=== PATIENT | female | born 1965 | race Caucasian/White ===

== ENCOUNTER 2016-05-31 14:54 | Inpatient (IN) | payer OTHER ==
[~2016-05-31] VITALS: Ht 172.7 cm; Wt 119.8 kg
[~2016-05-31 14:54] MED LIST: ACETAMINOPHEN500 M3 PO; AMARYL2 MG PO; BENADRYL25 M2 PO; CARAFATE1 G1 PO; CEFADROXIL500 M1 PO; CORGARD20 MG PO; DICLOFENAC50 MG PO; FLEXERIL5 MG PO; HCTZ PO; LEVEMIR100 U/ML; METFORMIN HCL1000 MG PO; Metformin Hydr500 MG PO; NORCO 10-325 T1 EACH PO; OMEPRAZOLE20 MG PO; OXYCODONE5 MG PO; PROPRANOLOL HCL10 MG PO; TYLENOL WITH CO1 TA1 PO; [UNRECOGNIZED DRUG - OTHER] PO; [UNRECOGNIZED DRUG - OTHER] T
[2016-05-31 15:23] VITALS: BP 118/62
[2016-05-31 16:04] LABS: BASO # 0.1 10*3/uL (0.0-0.1); BASO % 1.4 % (0.0-1.0); EOS # 0.1 10*3/uL (0.0-0.4); EOS % 3.3 % (1.0-4.0); HEMOGLOBIN 10.1 g/dl (12.0-16.0); LYMPH # 0.9 10*3/uL (1.3-4.4); LYMPH % 23.3 % (27.0-41.0); MEAN CELL VOLUME 76.6 fl (81.0-99.0); MEAN CORPUSCULAR HGB 22.1 pg (27.0-31.0); MEAN CORPUSCULAR HGB CONC 28.9 g/dl (33.0-37.0); MONO # 0.5 10*3/uL (0.1-1.0); NEUT # 2.2 10*3/uL (2.3-7.9); NEUT % 58.2 % (47.0-73.0); PLATELET COUNT AUTOMATED 85 10*3/uL (130-400); RED BLOOD COUNT 4.57 10*6/uL (4.10-5.10); RED CELL DISTRI WIDTH 17.9 % (0-14.5); WHITE BLOOD COUNT 3.7 10*3/uL (4.8-10.8)
[2016-05-31 16:22] LABS: ALBUMIN 2.6 gm/dl (3.1-4.5); ALKALINE PHOSPHATASE 156 U/L (45-117); BUN 8 mg/dl (7-24); CARBON DIOXIDE 26 mmol/L (21-32); CHLORIDE 107 mmol/L (98-107); EST GLOM FILT AFRICAN AMERICAN > 60 ml/min; GLUCOSE 176 mg/dL (65-99); POTASSIUM 4.6 mmol/L (3.5-5.1); SGOT/AST 43 IU/L (3-35); SGPT/ALT 32 U/L (12-78); SODIUM 142 mmol/L (136-145); TOTAL PROTEIN 6.9 gm/dL (6.4-8.2)
[2016-05-31] MEDS ORDERED: MIRTAZAPINE15 M2 PO (17:52)
[2016-05-31 18:24] VITALS: BP 120/68
[2016-05-31 18:35] VITALS: BP 146/92
[2016-05-31] MEDS ORDERED: LEVEMIR10 ML SC (18:55)
[2016-05-31 20:00] VITALS: BP 113/65
[2016-06-01] VITALS: BP 119/75
[2016-06-01 06:04] LABS: ALBUMIN 2.3 gm/dl (3.1-4.5); BUN 9 mg/dl (7-24); CARBON DIOXIDE 24 mmol/L (21-32); CHLORIDE 107 mmol/L (98-107); CHOLESTEROL 112 mg/dL (<200); EST GLOM FILT AFRICAN AMERICAN > 60 ml/min; GLUCOSE 142 mg/dL (65-99); MAGNESIUM 1.8 mg/dL (1.5-2.1); SGOT/AST 32 IU/L (3-35); SGPT/ALT 25 U/L (12-78); SODIUM 142 mmol/L (136-145); TRIGLYCERIDES 98 mg/dl (<150); VLDL CHOLESTEROL 20 mg/dL (6-40)
[2016-06-01 06:10] LABS: HEMATOCRIT 29.2 % (37.0-47.0); HEMOGLOBIN 8.5 g/dl (12.0-16.0); MEAN CELL VOLUME 75.5 fl (81.0-99.0); MEAN CORPUSCULAR HGB CONC 29.1 g/dl (33.0-37.0); PLATELET COUNT AUTOMATED 61 10*3/uL (130-400); RED BLOOD COUNT 3.87 10*6/uL (4.10-5.10); RED CELL DISTRI WIDTH 17.7 % (0-14.5); WHITE BLOOD COUNT 2.6 10*3/uL (4.8-10.8)
[2016-06-01 06:12] LABS: ALKALINE PHOSPHATASE 129 U/L (45-117); BILIRUBIN, TOTAL 0.9 mg/dl (0.2-1.0); HDL CHOLESTEROL 28 mg/dl (40-60); LDL CHOLESTEROL 64 mg/dL (9-159); PHOSPHOROUS 3.3 mg/dL (2.5-4.9); TOTAL PROTEIN 5.7 gm/dL (6.4-8.2)
[2016-06-01 06:45] LABS: HEMOGLOBIN A1c 6.8 % (4.8-5.6)
[2016-06-01 07:07] LABS: INTERNATIONAL NORM RATIO 1.2 (2.0-3.5); PROTHROMBIN TIME 13.4 SECONDS (9.0-12.4)
[2016-06-01 07:11] LABS: FOLIC ACID 7.88 ng/mL (>5.38)
[2016-06-01 07:32] LABS: EOSINOPHIL # 0.1 10*3/uL (0-0.4); EOSINOPHILS 5 % (1-4); HYPOCHROMIA MODERATE; LYMPHOCYTE # 0.6 10*3/uL (1.3-4.4); MICROCYTOSIS SLIGHT; MONOCYTE # 0.4 10*3/uL (0.1-1.0); NEUTROPHIL # 1.5 10*3/uL (2.3-7.9); NEUTROPHILS 58 % (47-73); OVALOCYTES FEW; PLATELET SUFFICIENCY LOW (NORMAL); TOTAL CELLS COUNTED 100 #CELLS
[2016-06-01 08:00] VITALS: BP 131/68
[2016-06-01 12:00] VITALS: BP 124/72
[2016-06-01 15:55] VITALS: BP 124/70
[2016-06-01 15:55] LABS: BODY FLUID LDH 49 IU/L
[2016-06-01 16:24] LABS: BODY FLUID TYPE PERITONEAL
[2016-06-01 16:32] LABS: BODY FLUID RBC < 1000 /uL; BODY FLUID WBC 210 /uL
[2016-06-01 16:43] LABS: BF LYMPHOCYTES 4 %; BF NEUTROPHILS 4 %
[2016-06-01 16:44] LABS: BF MACROPHAGES 87 %; BF MESOTHELIALS 2 %
[2016-06-01 20:00] VITALS: BP 112/59
[2016-06-02] VITALS: BP 116/47
[2016-06-02 06:07] LABS: HEMATOCRIT 31.2 % (37.0-47.0); HEMOGLOBIN 9.1 g/dl (12.0-16.0); MEAN CELL VOLUME 75.5 fl (81.0-99.0); MEAN CORPUSCULAR HGB CONC 29.2 g/dl (33.0-37.0); RED BLOOD COUNT 4.13 10*6/uL (4.10-5.10); RED CELL DISTRI WIDTH 17.8 % (0-14.5); WHITE BLOOD COUNT 2.4 10*3/uL (4.8-10.8)
[2016-06-02 06:24] LABS: PLATELET COUNT AUTOMATED 83 10*3/uL (130-400)
[2016-06-02 06:31] LABS: CHLORIDE 107 mmol/L (98-107); POTASSIUM 4.4 mmol/L (3.5-5.1); SODIUM 141 mmol/L (136-145); TOTAL PROTEIN 5.6 gm/dL (6.4-8.2)
[2016-06-02 06:36] LABS: ALBUMIN 2.1 gm/dl (3.1-4.5); ALKALINE PHOSPHATASE 125 U/L (45-117); BILIRUBIN, TOTAL 0.6 mg/dl (0.2-1.0); BUN 7 mg/dl (7-24); CARBON DIOXIDE 26 mmol/L (21-32); EST GLOM FILT AFRICAN AMERICAN > 60 ml/min; GLUCOSE 159 mg/dL (65-99); SGOT/AST 29 IU/L (3-35); SGPT/ALT 23 U/L (12-78)
[2016-06-02 07:30] LABS: ATYPICAL LYMPHS 1 % (0-0); BASOPHILS 1 % (0-1); EOSINOPHIL # 0.1 10*3/uL (0-0.4); EOSINOPHILS 3 % (1-4); LYMPHOCYTE # 0.7 10*3/uL (1.3-4.4); MONOCYTE # 0.3 10*3/uL (0.1-1.0); MYELOCYTES 2 % (0-0); NEUTROPHIL # 1.2 10*3/uL (2.3-7.9); NEUTROPHILS 50 % (47-73); PLATELET SUFFICIENCY LOW (NORMAL); TOTAL CELLS COUNTED 100 #CELLS
[2016-06-02 07:31] LABS: SCHISTOCYTES FEW
[2016-06-02 08:00] VITALS: BP 110/62
[2016-06-02] MEDS ORDERED: CONSTULOSE10 GM/151 PO (11:24)
[2016-06-02 12:00] VITALS: BP 124/67
== END 2016-06-02 14:15 | disposition home or self-care (01) | DRG 432 ==
LOC: ED 14:54 → 5E 17:22 → EDHOLD 17:22 → 5E 18:29
PROVIDERS: Hospitalist; Internal Medicine; Physician Assistant; Student in an Organized Health Care Education/Training Program
PROC: 0W9G3ZX Drainage of Peritoneal Cavity, Percutaneous Approach, Diagnostic (ICD-10-PCS; principal; 2016-06-01)
PROC: BW40ZZZ Ultrasonography of Abdomen (ICD-10-PCS; 2016-06-01)
DX: K74.60 Unspecified cirrhosis of liver (principal); E43 Unspecified severe protein-calorie malnutrition; D61.818 Other pancytopenia; R18.8 Other ascites; E11.8 Type 2 diabetes mellitus with unspecified complications; Z68.41 Body mass index [BMI] 40.0-44.9, adult; K72.90 Hepatic failure, unspecified without coma; R16.1 Splenomegaly, not elsewhere classified; F17.200 Nicotine dependence, unspecified, uncomplicated; L40.9 Psoriasis, unspecified; D64.9 Anemia, unspecified; Z90.49 Acquired absence of other specified parts of digestive tract; Z82.49 Family history of ischemic heart disease and other diseases of the circulatory system; Z84.89 Family history of other specified conditions; Z79.4 Long term (current) use of insulin; Z88.8 Allergy status to other drugs, medicaments and biological substances; Z79.84 Long term (current) use of oral hypoglycemic drugs; Z79.899 Other long term (current) drug therapy

== ENCOUNTER → 2016-07-07 | Outpatient (CLI) | payer OTHER ==
[~2016-07-07] MED LIST changes: +CONSTULOSE10 GM/151 PO; +LEVEMIR10 ML SC; +MIRTAZAPINE15 M2 PO
[2016-07-07 12:16] LABS: HEMATOCRIT 34.8 % (37.0-47.0); HEMOGLOBIN 9.9 g/dl (12.0-16.0); MEAN CELL VOLUME 74.4 fl (81.0-99.0); MEAN CORPUSCULAR HGB 21.2 pg (27.0-31.0); MEAN CORPUSCULAR HGB CONC 28.4 g/dl (33.0-37.0); PLATELET COUNT AUTOMATED 89 10*3/uL (130-400); RED BLOOD COUNT 4.68 10*6/uL (4.10-5.10); RED CELL DISTRI WIDTH 18.5 % (0-14.5); WHITE BLOOD COUNT 4.1 10*3/uL (4.8-10.8)
[2016-07-07 13:04] LABS: BASOPHIL # 0.1 10*3/uL (0-0.1); BASOPHILS 2 % (0-1); EOSINOPHILS 1 % (1-4); LYMPHOCYTE # 0.6 10*3/uL (1.3-4.4); MONOCYTE # 0.2 10*3/uL (0.1-1.0); NEUTROPHIL # 3.2 10*3/uL (2.3-7.9); NEUTROPHILS 77 % (47-73); PLATELET SUFFICIENCY LOW (NORMAL); TOTAL CELLS COUNTED 100 #CELLS
[2016-07-07 13:09] LABS: ALBUMIN 2.5 gm/dl (3.1-4.5); BUN 12 mg/dl (7-24); CARBON DIOXIDE 26 mmol/L (21-32); CHLORIDE 104 mmol/L (98-107); EST GLOM FILT AFRICAN AMERICAN > 60 ml/min; GLUCOSE 153 mg/dL (65-99); POTASSIUM 4.5 mmol/L (3.5-5.1); SGOT/AST 35 IU/L (3-35); SGPT/ALT 22 U/L (12-78); SODIUM 139 mmol/L (136-145)
[2016-07-07 13:12] LABS: ALKALINE PHOSPHATASE 146 U/L (45-117); BILIRUBIN, TOTAL 1.1 mg/dl (0.2-1.0); TOTAL PROTEIN 6.9 gm/dL (6.4-8.2)
[2016-07-07 13:16] LABS: FERRITIN 11.9 ng/mL (10.0-291.0)
== END | disposition home or self-care (01) ==
LOC: LAB 11:55
PROVIDERS: Internal Medicine Hematology & Oncology
DX: I85.01 Esophageal varices with bleeding (principal); R59.1 Generalized enlarged lymph nodes; D69.6 Thrombocytopenia, unspecified; D61.818 Other pancytopenia

== ENCOUNTER → 2016-08-02 | Day surgery (SDC) | payer OTHER | DX: R18.8 Other ascites (principal) ==

== ENCOUNTER 2016-08-17 10:17 | Inpatient (IN) | payer OTHER ==
[2016-08-17] VITALS (12 sets, daily range): BP systolic 100–134; BP diastolic 49–93
[~2016-08-17] VITALS: Ht 174 cm; Wt 110.7 kg
[2016-08-17 10:56] LABS: HEMOGLOBIN 9.2 g/dl (12.0-16.0); MEAN CELL VOLUME 72.1 fl (81.0-99.0); MEAN CORPUSCULAR HGB 20.7 pg (27.0-31.0); MEAN CORPUSCULAR HGB CONC 28.8 g/dl (33.0-37.0); PLATELET COUNT AUTOMATED 68 10*3/uL (130-400); RED BLOOD COUNT 4.44 10*6/uL (4.10-5.10); WHITE BLOOD COUNT 4.4 10*3/uL (4.8-10.8)
[2016-08-17 11:07] LABS: INTERNATIONAL NORM RATIO 1.2 (2.0-3.5); PROTHROMBIN TIME 12.8 SECONDS (9.0-12.4)
[2016-08-17 11:10] LABS: ALBUMIN 2.3 gm/dl (3.1-4.5); ALKALINE PHOSPHATASE 162 U/L (45-117); BILIRUBIN, TOTAL 0.8 mg/dl (0.2-1.0); BUN 15 mg/dl (7-24); CARBON DIOXIDE 24 mmol/L (21-32); CHLORIDE 106 mmol/L (98-107); CKMB 1.4 ng/ml (0.5-3.6); CPK 89 U/L (26-192); EST GLOM FILT AFRICAN AMERICAN > 60 ml/min; GLUCOSE 213 mg/dL (65-99); MAGNESIUM 1.9 mg/dL (1.5-2.1); POTASSIUM 4.2 mmol/L (3.5-5.1); SGOT/AST 50 IU/L (3-35); SGPT/ALT 33 U/L (12-78); SODIUM 140 mmol/L (136-145); TOTAL PROTEIN 6.3 gm/dL (6.4-8.2)
[2016-08-17 11:14] LABS: TROPONIN I < 0.015 ng/ml (<0.045)
[2016-08-17 11:16] LABS: BASOPHILS 1 % (0-1); LYMPHOCYTE # 0.5 10*3/uL (1.3-4.4); MONOCYTE # 0.2 10*3/uL (0.1-1.0); NEUTROPHIL # 3.7 10*3/uL (2.3-7.9); NEUTROPHILS 84 % (47-73); TOTAL CELLS COUNTED 100 #CELLS
[2016-08-17 11:17] LABS: HYPOCHROMIA MODERATE; MICROCYTOSIS SLIGHT; PLATELET SUFFICIENCY LOW (NORMAL)
[2016-08-17 12:52] LABS: LA>2 REFLEX 2 HR DRAW NOW
[2016-08-17] MEDS ORDERED: OMEPRAZOLE40 MG PO (14:30)
[2016-08-17 15:16] LABS: LA>2 REFLEX 4 HR DRAW NOW
[2016-08-17 18:18] LABS: CKMB 1.1 ng/ml (0.5-3.6); CPK 81 U/L (26-192)
[2016-08-17 18:21] LABS: TROPONIN I < 0.015 ng/ml (<0.045)
[2016-08-17 23:04] LABS: BILIRUBIN NEGATIVE (NEGATIVE); BLOOD NEGATIVE (NEGATIVE); CLARITY TURBID (CLEAR); COLOR YELLOW (YELLOW); GLUCOSE NEGATIVE (NEGATIVE); KETONE NEGATIVE (NEGATIVE); LEUKO ESTERASE NEGATIVE (NEGATIVE); NITRITE NEGATIVE (NEGATIVE); PH 5.5 (5.0-9.0); PROTEIN TRACE (NEGATIVE); UROBILINOGEN 0.2 E.U./dl (0.2-1.0)
[2016-08-17 23:46] LABS: BACTERIA 1+; URINE REFLEX COMMENT NO (NO)
[2016-08-18] VITALS: BP 102/58
[2016-08-18 00:37] LABS: CKMB 1.3 ng/ml (0.5-3.6); CPK 72 U/L (26-192)
[2016-08-18 00:38] LABS: TROPONIN I < 0.015 ng/ml (<0.045)
[2016-08-18 06:23] LABS: HEMATOCRIT 27.2 % (37.0-47.0); HEMOGLOBIN 7.9 g/dl (12.0-16.0); MEAN CELL VOLUME 70.6 fl (81.0-99.0); MEAN CORPUSCULAR HGB 20.5 pg (27.0-31.0); RED BLOOD COUNT 3.85 10*6/uL (4.10-5.10); RED CELL DISTRI WIDTH 19.7 % (0-14.5); WHITE BLOOD COUNT 2.6 10*3/uL (4.8-10.8)
[2016-08-18 06:29] LABS: PLATELET COUNT AUTOMATED 37 10*3/uL (130-400)
[2016-08-18 06:32] LABS: CKMB 1.5 ng/ml (0.5-3.6); CPK 58 U/L (26-192)
[2016-08-18 06:39] LABS: TROPONIN I < 0.015 ng/ml (<0.045)
[2016-08-18 06:54] LABS: BUN 18 mg/dl (7-24); CARBON DIOXIDE 24 mmol/L (21-32); CHLORIDE 106 mmol/L (98-107); EST GLOM FILT AFRICAN AMERICAN > 60 ml/min; GLUCOSE 252 mg/dL (65-99); IRON 17 ug/dL (50-170); IRON SATURATION 6 %; MAGNESIUM 1.8 mg/dL (1.5-2.1); PHOSPHOROUS 2.7 mg/dL (2.5-4.9); POTASSIUM 3.9 mmol/L (3.5-5.1); SODIUM 139 mmol/L (136-145); UIBC 238 ug/dL (110-365)
[2016-08-18 06:59] LABS: EOSINOPHILS 1 % (1-4); LYMPHOCYTE # 0.3 10*3/uL (1.3-4.4); MONOCYTE # 0.1 10*3/uL (0.1-1.0); NEUTROPHIL # 2.1 10*3/uL (2.3-7.9); NEUTROPHILS 82 % (47-73); TOTAL CELLS COUNTED 100 #CELLS
[2016-08-18 07:01] LABS: PLATELET SUFFICIENCY LOW (NORMAL)
[2016-08-18 07:02] LABS: HYPOCHROMIA SLIGHT; MICROCYTOSIS SLIGHT; OVALOCYTES FEW; TARGET CELLS FEW
[2016-08-18 07:03] LABS: HEMOGLOBIN A1c 7.2 % (4.8-5.6)
[2016-08-18 07:14] LABS: INTERNATIONAL NORM RATIO 1.3 (2.0-3.5); PROTHROMBIN TIME 13.8 SECONDS (9.0-12.4)
[2016-08-18 08:00] VITALS: BP 101/49
[2016-08-18 12:00] VITALS: BP 96/51
[2016-08-18 12:20] VITALS: BP 95/47
[2016-08-18 16:00] VITALS: BP 102/54
[2016-08-18 20:00] VITALS: BP 104/52
[2016-08-19] VITALS: BP 116/58
[2016-08-19 06:19] LABS: HEMATOCRIT 28.6 % (37.0-47.0); HEMOGLOBIN 8.1 g/dl (12.0-16.0); MEAN CELL VOLUME 72.6 fl (81.0-99.0); MEAN CORPUSCULAR HGB 20.6 pg (27.0-31.0); MEAN CORPUSCULAR HGB CONC 28.3 g/dl (33.0-37.0); RED BLOOD COUNT 3.94 10*6/uL (4.10-5.10); RED CELL DISTRI WIDTH 20.4 % (0-14.5); WHITE BLOOD COUNT 3.8 10*3/uL (4.8-10.8)
[2016-08-19 06:28] LABS: PLATELET COUNT AUTOMATED 57 10*3/uL (130-400)
[2016-08-19 06:45] LABS: CHLORIDE 108 mmol/L (98-107); SODIUM 142 mmol/L (136-145)
[2016-08-19 06:54] LABS: ALBUMIN 1.9 gm/dl (3.1-4.5); ALKALINE PHOSPHATASE 140 U/L (45-117); BILIRUBIN, TOTAL 0.7 mg/dl (0.2-1.0); BUN 15 mg/dl (7-24); CARBON DIOXIDE 26 mmol/L (21-32); EST GLOM FILT AFRICAN AMERICAN > 60 ml/min; GLUCOSE 135 mg/dL (65-99); SGOT/AST 48 IU/L (3-35); SGPT/ALT 35 U/L (12-78); TOTAL PROTEIN 5.6 gm/dL (6.4-8.2)
[2016-08-19 06:55] LABS: BASOPHILS 1 % (0-1); EOSINOPHIL # 0.2 10*3/uL (0-0.4); EOSINOPHILS 4 % (1-4); HYPOCHROMIA SLIGHT; LYMPHOCYTE # 0.7 10*3/uL (1.3-4.4); MICROCYTOSIS SLIGHT; MONOCYTE # 0.3 10*3/uL (0.1-1.0); NEUTROPHIL # 2.5 10*3/uL (2.3-7.9); NEUTROPHILS 67 % (47-73); PLATELET SUFFICIENCY LOW (NORMAL); POLYCHROMASIA SLIGHT; TOTAL CELLS COUNTED 100 #CELLS
[2016-08-19 08:00] VITALS: BP 104/46
[2016-08-19 12:00] VITALS: BP 110/47
[2016-08-19 16:00] VITALS: BP 115/71
[2016-08-19 20:00] VITALS: BP 110/58
[2016-08-20] VITALS: BP 104/53
[2016-08-20 06:51] LABS: HEMATOCRIT 28.1 % (37.0-47.0); MEAN CELL VOLUME 72.2 fl (81.0-99.0); MEAN CORPUSCULAR HGB 20.6 pg (27.0-31.0); MEAN CORPUSCULAR HGB CONC 28.5 g/dl (33.0-37.0); PLATELET COUNT AUTOMATED 61 10*3/uL (130-400); RED BLOOD COUNT 3.89 10*6/uL (4.10-5.10); RED CELL DISTRI WIDTH 20.4 % (0-14.5)
[2016-08-20 07:11] LABS: BASOPHIL # 0.1 10*3/uL (0-0.1); BASOPHILS 2 % (0-1); EOSINOPHIL # 0.1 10*3/uL (0-0.4); EOSINOPHILS 3 % (1-4); LYMPHOCYTE # 0.7 10*3/uL (1.3-4.4); MONOCYTE # 0.2 10*3/uL (0.1-1.0); NEUTROPHIL # 1.9 10*3/uL (2.3-7.9); NEUTROPHILS 64 % (47-73); TOTAL CELLS COUNTED 100 #CELLS
[2016-08-20 07:12] LABS: HYPOCHROMIA SLIGHT; MICROCYTOSIS SLIGHT; OVALOCYTES FEW; PLATELET SUFFICIENCY LOW (NORMAL); POLYCHROMASIA SLIGHT; TARGET CELLS FEW
[2016-08-20 07:20] LABS: BUN 15 mg/dl (7-24); CARBON DIOXIDE 25 mmol/L (21-32); CHLORIDE 109 mmol/L (98-107); EST GLOM FILT AFRICAN AMERICAN > 60 ml/min; GLUCOSE 182 mg/dL (65-99); SODIUM 142 mmol/L (136-145)
[2016-08-20 08:00] VITALS: BP 105/65
[2016-08-20 12:00] VITALS: BP 121/53
[2016-08-20 16:00] VITALS: BP 109/65
[2016-08-20 20:00] VITALS: BP 100/53
[2016-08-21] VITALS: BP 101/52
[2016-08-21 06:33] LABS: HEMOGLOBIN 7.9 g/dl (12.0-16.0); MEAN CELL VOLUME 73.1 fl (81.0-99.0); MEAN CORPUSCULAR HGB 20.6 pg (27.0-31.0); MEAN CORPUSCULAR HGB CONC 28.2 g/dl (33.0-37.0); PLATELET COUNT AUTOMATED 57 10*3/uL (130-400); RED BLOOD COUNT 3.83 10*6/uL (4.10-5.10); RED CELL DISTRI WIDTH 20.4 % (0-14.5); WHITE BLOOD COUNT 2.8 10*3/uL (4.8-10.8)
[2016-08-21 07:03] LABS: BUN 16 mg/dl (7-24); CARBON DIOXIDE 25 mmol/L (21-32); CHLORIDE 108 mmol/L (98-107); EST GLOM FILT AFRICAN AMERICAN > 60 ml/min; GLUCOSE 220 mg/dL (65-99); POTASSIUM 4.2 mmol/L (3.5-5.1); SODIUM 140 mmol/L (136-145)
[2016-08-21 07:15] LABS: BASOPHIL # 0.1 10*3/uL (0-0.1); BASOPHILS 4 % (0-1); EOSINOPHIL # 0.1 10*3/uL (0-0.4); EOSINOPHILS 4 % (1-4); LYMPHOCYTE # 0.4 10*3/uL (1.3-4.4); MONOCYTE # 0.2 10*3/uL (0.1-1.0); NEUTROPHIL # 1.9 10*3/uL (2.3-7.9); NEUTROPHILS 69 % (47-73); PLATELET SUFFICIENCY LOW (NORMAL); TOTAL CELLS COUNTED 100 #CELLS
[2016-08-21 07:16] LABS: HYPOCHROMIA SLIGHT; STOMATOCYTE FEW
[2016-08-21 07:17] LABS: TARGET CELLS FEW
[2016-08-21 08:00] VITALS: BP 110/60
[2016-08-21] MEDS ORDERED: LEVAQUIN750 M1 PO (11:09)
== END 2016-08-21 13:15 | disposition home or self-care (01) | DRG 682 ==
LOC: ED 10:17 → 5E 12:33 → EDHOLD 12:33 → 5E 13:06
PROVIDERS: Emergency Medicine; Hospitalist; Internal Medicine; Student in an Organized Health Care Education/Training Program
PROC: 0W9G3ZZ Drainage of Peritoneal Cavity, Percutaneous Approach (ICD-10-PCS; 2016-08-17)
PROC: BW40ZZZ Ultrasonography of Abdomen (ICD-10-PCS; 2016-08-17)
PROC: 30233R1 Transfusion of Nonautologous Platelets into Peripheral Vein, Percutaneous Approach (ICD-10-PCS; principal; 2016-08-18)
DX: N17.0 Acute kidney failure with tubular necrosis (principal); J18.9 Pneumonia, unspecified organism; E43 Unspecified severe protein-calorie malnutrition; K65.2 Spontaneous bacterial peritonitis; D61.818 Other pancytopenia; R18.8 Other ascites; K74.60 Unspecified cirrhosis of liver; E11.65 Type 2 diabetes mellitus with hyperglycemia; D50.9 Iron deficiency anemia, unspecified; L40.9 Psoriasis, unspecified; M19.90 Unspecified osteoarthritis, unspecified site; Z90.49 Acquired absence of other specified parts of digestive tract; Z84.89 Family history of other specified conditions; Z88.8 Allergy status to other drugs, medicaments and biological substances; Z79.4 Long term (current) use of insulin; Z79.84 Long term (current) use of oral hypoglycemic drugs; Z79.899 Other long term (current) drug therapy; Z79.1 Long term (current) use of non-steroidal anti-inflammatories (NSAID); Z68.36 Body mass index [BMI] 36.0-36.9, adult

== ENCOUNTER → 2016-09-08 | Outpatient (CLI) | payer OTHER ==
[~2016-09-08] MED LIST changes: +ALDACTONE25 MG PO; +DUONEB 3 MG/3 ML3 M1 NEB; +FUROSEMIDE40 MG PO; +K-TAB20 MEQ PO; +LEVAQUIN750 M1 PO; +NOVOLOG10 ML SC; +OMEPRAZOLE40 MG PO
== END ==
LOC: EDSTATUS 13:00
DX: R18.8 Other ascites (principal)

== ENCOUNTER 2016-09-24 10:43 | Inpatient (IN) | payer OTHER ==
[~2016-09-24] VITALS: Ht 172.7 cm; Wt 112.2 kg
[~2016-09-24 10:43] MED LIST changes: -ALDACTONE25 MG PO; -DUONEB 3 MG/3 ML3 M1 NEB; -FUROSEMIDE40 MG PO; -K-TAB20 MEQ PO; -NOVOLOG10 ML SC
[2016-09-24 10:46] VITALS: BP 126/74
[2016-09-24] MEDS ORDERED: NOVOLOG10 ML SC (10:51)
[2016-09-24 11:44] LABS: BASO % 0.3 % (0.0-1.0); EOS # 0.2 10*3/uL (0.0-0.4); EOS % 1.4 % (1.0-4.0); HEMATOCRIT 34.8 % (37.0-47.0); HEMOGLOBIN 10.3 g/dl (12.0-16.0); IG # 0.1 10*3/uL (0.0-0.1); LYMPH # 1.1 10*3/uL (1.3-4.4); LYMPH % 10.4 % (27.0-41.0); MEAN CELL VOLUME 72.8 fl (81.0-99.0); MEAN CORPUSCULAR HGB 21.5 pg (27.0-31.0); MEAN CORPUSCULAR HGB CONC 29.6 g/dl (33.0-37.0); MONO % 9.1 % (3.0-9.0); NEUT # 8.6 10*3/uL (2.3-7.9); NEUT % 78.3 % (47.0-73.0); PLATELET COUNT AUTOMATED 114 10*3/uL (130-400); RED BLOOD COUNT 4.78 10*6/uL (4.10-5.10); RED CELL DISTRI WIDTH 22.1 % (0-14.5); WHITE BLOOD COUNT 10.9 10*3/uL (4.8-10.8)
[2016-09-24 11:55] LABS: INTERNATIONAL NORM RATIO 1.4 (2.0-3.5); PROTHROMBIN TIME 14.7 SECONDS (9.0-12.4)
[2016-09-24 11:56] LABS: ALBUMIN 2.1 gm/dl (3.1-4.5); ALKALINE PHOSPHATASE 185 U/L (45-117); BILIRUBIN, TOTAL 1.9 mg/dl (0.2-1.0); BUN 26 mg/dl (7-24); C-REACTIVE PROTEIN 2.38 MG/DL (0-0.3); CARBON DIOXIDE 22 mmol/L (21-32); CHLORIDE 100 mmol/L (98-107); CKMB 1.5 ng/ml (0.5-3.6); CPK 81 U/L (26-192); EST GLOM FILT AFRICAN AMERICAN 40 ml/min; GLUCOSE 201 mg/dL (65-99); MAGNESIUM 1.6 mg/dL (1.5-2.1); POTASSIUM 3.6 mmol/L (3.5-5.1); SGOT/AST 48 IU/L (3-35); SGPT/ALT 38 U/L (12-78); SODIUM 134 mmol/L (136-145); TOTAL PROTEIN 5.9 gm/dL (6.4-8.2)
[2016-09-24 11:57] LABS: TROPONIN I < 0.015 ng/ml (<0.045)
[2016-09-24 12:54] VITALS: BP 110/54
[2016-09-24 13:00] VITALS: BP 98/56
[2016-09-24 13:08] LABS: BILIRUBIN 2+ (NEGATIVE); BLOOD NEGATIVE (NEGATIVE); CLARITY CLOUDY (CLEAR); COLOR YELLOW (YELLOW); GLUCOSE NEGATIVE (NEGATIVE); KETONE TRACE (NEGATIVE); LEUKO ESTERASE NEGATIVE (NEGATIVE); NITRITE POSITIVE (NEGATIVE); PH 5.5 (5.0-9.0); PROTEIN 1+ (NEGATIVE); SPECIFIC GRAVITY 1.025 (1.005-1.030)
[2016-09-24 13:20] LABS: BACTERIA 3+; HYALINE CAST 41-50; URINE REFLEX COMMENT YES (NO)
[2016-09-24 13:35] LABS: LA>2 REFLEX 2 HR DRAW NOW
[2016-09-24 13:56] LABS: LA>2 RFLX FOLLOW UP AT 2 HRS 2.5 mmol/L (0.4-2.0)
[2016-09-24 14:00] VITALS: BP 98/56
[2016-09-24 15:45] LABS: LA>2 REFLEX 4 HR DRAW NOW
[2016-09-24 16:00] VITALS: BP 102/79
[2016-09-24 20:00] VITALS: BP 93/45
[2016-09-25] VITALS: BP 91/40
[2016-09-25 06:27] LABS: HEMATOCRIT 34.1 % (37.0-47.0); MEAN CELL VOLUME 73.3 fl (81.0-99.0); MEAN CORPUSCULAR HGB 21.5 pg (27.0-31.0); MEAN CORPUSCULAR HGB CONC 29.3 g/dl (33.0-37.0); PLATELET COUNT AUTOMATED 113 10*3/uL (130-400); RED BLOOD COUNT 4.65 10*6/uL (4.10-5.10); RED CELL DISTRI WIDTH 21.8 % (0-14.5); WHITE BLOOD COUNT 12.9 10*3/uL (4.8-10.8)
[2016-09-25 06:57] LABS: BASOPHIL # 0.4 10*3/uL (0-0.1); BASOPHILS 3 % (0-1); EOSINOPHIL # 0.1 10*3/uL (0-0.4); EOSINOPHILS 1 % (1-4); HYPOCHROMIA SLIGHT; LYMPHOCYTE # 1.2 10*3/uL (1.3-4.4); MONOCYTE # 0.6 10*3/uL (0.1-1.0); NEUTROPHIL # 10.6 10*3/uL (2.3-7.9); NEUTROPHILS 82 % (47-73); PLATELET SUFFICIENCY LOW (NORMAL); TOTAL CELLS COUNTED 100 #CELLS
[2016-09-25 07:01] LABS: INTERNATIONAL NORM RATIO 1.4 (2.0-3.5); PROTHROMBIN TIME 14.8 SECONDS (9.0-12.4)
[2016-09-25 07:07] LABS: MAGNESIUM 1.6 mg/dL (1.5-2.1); POTASSIUM 3.4 mmol/L (3.5-5.1)
[2016-09-25 08:00] VITALS: BP 90/60
[2016-09-25 08:05] LABS: FOLIC ACID 5.28 ng/mL (>5.38); VITAMIN D, 25-HYDROXY 43.8 ng/mL (30-100)
[2016-09-25 12:00] VITALS: BP 110/47
[2016-09-25 16:00] VITALS: BP 102/54
[2016-09-25 20:00] VITALS: BP 80/34
[2016-09-25 23:10] VITALS: BP 115/60
[2016-09-26] VITALS: BP 100/49
[2016-09-26 07:00] LABS: HEMATOCRIT 31.6 % (37.0-47.0); HEMOGLOBIN 9.4 g/dl (12.0-16.0); MEAN CELL VOLUME 74.4 fl (81.0-99.0); MEAN CORPUSCULAR HGB 22.1 pg (27.0-31.0); MEAN CORPUSCULAR HGB CONC 29.7 g/dl (33.0-37.0); PLATELET COUNT AUTOMATED 95 10*3/uL (130-400); RED BLOOD COUNT 4.25 10*6/uL (4.10-5.10); RED CELL DISTRI WIDTH 21.4 % (0-14.5); WHITE BLOOD COUNT 11.2 10*3/uL (4.8-10.8)
[2016-09-26 07:34] LABS: POTASSIUM 3.3 mmol/L (3.5-5.1)
[2016-09-26 07:46] LABS: EOSINOPHIL # 0.1 10*3/uL (0-0.4); EOSINOPHILS 1 % (1-4); HYPOCHROMIA MODERATE; LYMPHOCYTE # 0.7 10*3/uL (1.3-4.4); MICROCYTOSIS SLIGHT; NEUTROPHIL # 9.4 10*3/uL (2.3-7.9); NEUTROPHILS 84 % (47-73); PLATELET SUFFICIENCY LOW (NORMAL); POLYCHROMASIA SLIGHT; SCHISTOCYTES FEW; TOTAL CELLS COUNTED 100 #CELLS
[2016-09-26 08:00] VITALS: BP 80/50
[2016-09-26 12:14] VITALS: BP 99/48
[2016-09-26 16:00] VITALS: BP 109/48
[2016-09-26 20:00] VITALS: BP 101/51
[2016-09-27] VITALS: BP 107/58
[2016-09-27 06:06] LABS: HEMATOCRIT 28.6 % (37.0-47.0); HEMOGLOBIN 8.4 g/dl (12.0-16.0); MEAN CELL VOLUME 73.7 fl (81.0-99.0); MEAN CORPUSCULAR HGB 21.6 pg (27.0-31.0); MEAN CORPUSCULAR HGB CONC 29.4 g/dl (33.0-37.0); NUCLEATED RED BLOOD CELL 0.4 % (0.0-0.0); RED BLOOD COUNT 3.88 10*6/uL (4.10-5.10); RED CELL DISTRI WIDTH 21.3 % (0-14.5)
[2016-09-27 06:10] LABS: POTASSIUM 3.1 mmol/L (3.5-5.1)
[2016-09-27 06:16] LABS: PLATELET COUNT AUTOMATED 61 10*3/uL (130-400)
[2016-09-27 07:17] LABS: EOSINOPHIL # 0.3 10*3/uL (0-0.4); EOSINOPHILS 5 % (1-4); HYPOCHROMIA MODERATE; LYMPHOCYTE # 0.4 10*3/uL (1.3-4.4); MICROCYTOSIS SLIGHT; MONOCYTE # 0.5 10*3/uL (0.1-1.0); NEUTROPHIL # 3.9 10*3/uL (2.3-7.9); NEUTROPHILS 77 % (47-73); PLATELET SUFFICIENCY LOW (NORMAL); SCHISTOCYTES FEW; TOTAL CELLS COUNTED 100 #CELLS
[2016-09-27 08:00] VITALS: BP 106/82
[2016-09-27 12:00] VITALS: BP 98/50
[2016-09-27 16:00] VITALS: BP 108/66
[2016-09-27 20:00] VITALS: BP 121/64
[2016-09-28] VITALS: BP 130/64
[2016-09-28 08:00] VITALS: BP 100/66
[2016-09-28 10:20] LABS: HEMATOCRIT 31.3 % (37.0-47.0); HEMOGLOBIN 9.2 g/dl (12.0-16.0); MEAN CELL VOLUME 75.4 fl (81.0-99.0); MEAN CORPUSCULAR HGB 22.2 pg (27.0-31.0); MEAN CORPUSCULAR HGB CONC 29.4 g/dl (33.0-37.0); PLATELET COUNT AUTOMATED 74 10*3/uL (130-400); RED BLOOD COUNT 4.15 10*6/uL (4.10-5.10); RED CELL DISTRI WIDTH 21.4 % (0-14.5)
[2016-09-28 10:31] LABS: POTASSIUM 3.7 mmol/L (3.5-5.1)
[2016-09-28 10:40] LABS: ATYPICAL LYMPHS 1 % (0-0); BASOPHIL # 0.1 10*3/uL (0-0.1); BASOPHILS 1 % (0-1); EOSINOPHIL # 0.1 10*3/uL (0-0.4); EOSINOPHILS 2 % (1-4); LYMPHOCYTE # 0.6 10*3/uL (1.3-4.4); MONOCYTE # 0.8 10*3/uL (0.1-1.0); NEUTROPHIL # 4.4 10*3/uL (2.3-7.9); NEUTROPHILS 73 % (47-73); TOTAL CELLS COUNTED 100 #CELLS
[2016-09-28 10:41] LABS: HYPOCHROMIA MODERATE; MICROCYTOSIS SLIGHT; PLATELET SUFFICIENCY LOW (NORMAL); SCHISTOCYTES FEW
[2016-09-28 12:00] VITALS: BP 104/50
[2016-09-28 16:00] VITALS: BP 112/61
[2016-09-28 20:00] VITALS: BP 110/64
[2016-09-29] VITALS (12 sets, daily range): BP systolic 84–109; BP diastolic 49–61
[2016-09-29 06:09] LABS: ALBUMIN 2.8 gm/dl (3.1-4.5); BILIRUBIN, TOTAL 0.7 mg/dl (0.2-1.0); MAGNESIUM 1.6 mg/dL (1.5-2.1); PHOSPHOROUS 2.4 mg/dL (2.5-4.9); POTASSIUM 3.3 mmol/L (3.5-5.1); TOTAL PROTEIN 5.6 gm/dL (6.4-8.2)
[2016-09-30] VITALS: BP 91/47
[2016-09-30 06:42] LABS: HEMATOCRIT 31.4 % (37.0-47.0); MEAN CELL VOLUME 74.9 fl (81.0-99.0); MEAN CORPUSCULAR HGB 21.5 pg (27.0-31.0); MEAN CORPUSCULAR HGB CONC 28.7 g/dl (33.0-37.0); PLATELET COUNT AUTOMATED 58 10*3/uL (130-400); RED BLOOD COUNT 4.19 10*6/uL (4.10-5.10); RED CELL DISTRI WIDTH 21.3 % (0-14.5); WHITE BLOOD COUNT 3.8 10*3/uL (4.8-10.8)
[2016-09-30 06:48] LABS: ALBUMIN 2.9 gm/dl (3.1-4.5); MAGNESIUM 1.5 mg/dL (1.5-2.1); PHOSPHOROUS 2.1 mg/dL (2.5-4.9); POTASSIUM 3.4 mmol/L (3.5-5.1)
[2016-09-30 07:36] LABS: BASOPHIL # 0.2 10*3/uL (0-0.1); BASOPHILS 5 % (0-1); EOSINOPHIL # 0.2 10*3/uL (0-0.4); EOSINOPHILS 5 % (1-4); HYPOCHROMIA MODERATE; LYMPHOCYTE # 0.5 10*3/uL (1.3-4.4); MICROCYTOSIS SLIGHT; MONOCYTE # 0.2 10*3/uL (0.1-1.0); NEUTROPHIL # 2.8 10*3/uL (2.3-7.9); NEUTROPHILS 73 % (47-73); OVALOCYTES FEW; PLATELET SUFFICIENCY LOW (NORMAL); SCHISTOCYTES FEW; TOTAL CELLS COUNTED 100 #CELLS
[2016-09-30 08:00] VITALS: BP 122/66
[2016-09-30 12:00] VITALS: BP 93/48
[2016-09-30] MEDS ORDERED: K-TAB20 MEQ PO (13:44)
[2016-09-30] MEDS ORDERED: DUONEB 3 MG/3 ML3 M1 NEB (13:44)
[2016-09-30] MEDS ORDERED: ALDACTONE25 MG PO (13:44)
[2016-09-30] MEDS ORDERED: FUROSEMIDE40 MG PO (13:44)
[2016-09-30 16:00] VITALS: BP 101/64
== END 2016-09-30 17:45 | disposition home or self-care (01) | DRG 871 ==
LOC: ED 10:43 → EDHOLD 12:24 → 5E 12:24
PROVIDERS: Emergency Medicine; Family Medicine; Internal Medicine; Internal Medicine Nephrology
PROC: 0W9G3ZZ Drainage of Peritoneal Cavity, Percutaneous Approach (ICD-10-PCS; 2016-09-24)
PROC: 0W9G3ZZ Drainage of Peritoneal Cavity, Percutaneous Approach (ICD-10-PCS; principal; 2016-09-29)
DX: A41.9 Sepsis, unspecified organism (principal); N17.0 Acute kidney failure with tubular necrosis; K76.7 Hepatorenal syndrome; D61.818 Other pancytopenia; D69.3 Immune thrombocytopenic purpura; R18.8 Other ascites; E87.2 Acidosis; E87.1 Hypo-osmolality and hyponatremia; N39.0 Urinary tract infection, site not specified; E11.649 Type 2 diabetes mellitus with hypoglycemia without coma; R19.7 Diarrhea, unspecified; L40.9 Psoriasis, unspecified; F17.210 Nicotine dependence, cigarettes, uncomplicated; E86.0 Dehydration; E88.09 Other disorders of plasma-protein metabolism, not elsewhere classified; R65.20 Severe sepsis without septic shock; K74.60 Unspecified cirrhosis of liver; Z88.8 Allergy status to other drugs, medicaments and biological substances; Z79.4 Long term (current) use of insulin; Z79.891 Long term (current) use of opiate analgesic; Z79.84 Long term (current) use of oral hypoglycemic drugs; Z90.49 Acquired absence of other specified parts of digestive tract; Z82.49 Family history of ischemic heart disease and other diseases of the circulatory system

== ENCOUNTER → 2016-10-07 | Outpatient (CLI) | payer OTHER ==
[~2016-10-07] MED LIST changes: +ALDACTONE25 MG PO; +DUONEB 3 MG/3 ML3 M1 NEB; +FUROSEMIDE40 MG PO; +K-TAB20 MEQ PO; +NOVOLOG10 ML SC
[2016-10-07 12:42] LABS: ALBUMIN 2.4 gm/dl (3.1-4.5); BILIRUBIN, TOTAL 1.2 mg/dl (0.2-1.0); POTASSIUM 3.7 mmol/L (3.5-5.1); TOTAL PROTEIN 5.7 gm/dL (6.4-8.2)
== END ==
LOC: LAB 00:10
PROVIDERS: Internal Medicine
DX: J90 Pleural effusion, not elsewhere classified (principal); J98.11 Atelectasis; K74.69 Other cirrhosis of liver; K75.81 Nonalcoholic steatohepatitis (NASH); E11.9 Type 2 diabetes mellitus without complications; I10 Essential (primary) hypertension; F17.200 Nicotine dependence, unspecified, uncomplicated

== ENCOUNTER → 2016-10-12 | Outpatient (CLI) | payer OTHER ==
[~2016-10-12] MED LIST changes: +CALCIPOTRIENE60 GM T; +CLOBETASOL EMOL50 GM T; +NEPHRO-VITE RX1 TAB PO; +OSTERA TABLET1 EACH PO
[2016-10-12 11:02] LABS: INTERNATIONAL NORM RATIO 1.2 (2.0-3.5); PROTHROMBIN TIME 13.4 SECONDS (9.0-12.4)
[2016-10-12 13:25] VITALS: BP 98/51
[2016-10-12 13:40] VITALS: BP 111/64
[2016-10-12 13:55] VITALS: BP 115/60
[2016-10-12 14:08] VITALS: BP 101/61
[2016-10-12 14:25] VITALS: BP 115/60
[2016-10-12 14:52] VITALS: BP 106/56
== END | disposition home or self-care (01) ==
LOC: EDSTATUS 11:00
PROVIDERS: Internal Medicine
DX: D3A.8 Other benign neuroendocrine tumors (principal); J90 Pleural effusion, not elsewhere classified; D69.6 Thrombocytopenia, unspecified; A41.9 Sepsis, unspecified organism; J81.1 Chronic pulmonary edema; R06.00 Dyspnea, unspecified

== ENCOUNTER → 2016-10-14 | Outpatient (CLI) | payer OTHER ==
[2016-10-14] VITALS (8 sets, daily range): BP systolic 97–113; BP diastolic 57–66
== END ==
LOC: EDSTATUS 12:00
DX: R18.8 Other ascites (principal); E11.9 Type 2 diabetes mellitus without complications; K74.60 Unspecified cirrhosis of liver; Z90.49 Acquired absence of other specified parts of digestive tract; Z87.891 Personal history of nicotine dependence